=== PATIENT | female | born 1975 | race African-American/Black ===

== ENCOUNTER 2016-08-10 04:21 | Emergency (ER) | payer OTHER ==
[~2016-08-10] VITALS: Ht 172.7 cm; Wt 70.0 kg
[2016-08-10] MEDS ORDERED: ARIP1TAB7 PO (04:36)
[2016-08-10] MEDS ORDERED: [UNRECOGNIZED DRUG - REMARK] (04:36)
--- NOTE | 2016-08-10 05:01 | PD ---
HPI Chief Complaint: Psychiatric Symptoms Time Seen by Provider: 04:55 Travel History International Travel<30 days: No Contact w/Intl Traveler<30days: No Traveled to known affect area: No History of Present Illness HPI 41-year-old female presents to emergency department under Bourgeois act by PD. They had responded to a disturbance. The patient admittedly had been smoking FLAKKA. She states that she is not suicidal or homicidal. She states that she hasn't slept in days. She has been smoking FLAKKA. She states that this is not mental illness. She states that she does have a history of schizophrenia but this is more due to drugs. The patient is uncooperative. She does not want to answer questions. She states that she merely wants to be left alone allowed to sleep. She denies any toxic ingestions. PFSH Past Medical History Bipolar Disorder: Yes Anxiety: Yes Depression: Yes Diminished Hearing: No Psychiatric: Yes (Paranoid Schizophrenia, poly-substance abuse) Reproductive: Yes (GONNORRHEA) Immunizations Current: Yes Schizophrenia: Yes (PARANOID SCHIZOPHRENIA) ?: Not LMP: UNK : 3 Para: 3 Tubal Ligation: Yes Past Surgical History Abdominal Surgery: Yes (2 C SECTIONS) Section: Yes (X2) Social History Alcohol Use: Yes (beer here and there) Tobacco Use: Yes (2 ppd) Substance Use: Yes (flocka) Allergies-Medications (Allergen,Severity, Reaction): Coded Allergies: Celexa (Verified Allergy, Severe, SOB, 08/10/16) Reported Meds & Prescriptions Reported Meds & Active Scripts Active Reported [Unk Sleep Med] Abilify (Aripiprazole) 20 Mg Tab 20 Mg PO DAILY Review of Systems ROS Limitations: Psychotic Physical Exam Narrative GENERAL: Well-nourished, well-developed patient. SKIN: Warm and dry. HEAD: Normocephalic and atraumatic. EYES: No scleral icterus. No injection or drainage. ENT: No nasal drainage noted. Mucous membranes pink. Airway patent. NECK: Supple, trachea midline. Moves head freely without obvious discomfort. CARDIOVASCULAR: Regular rate and rhythm without murmurs, gallops, or rubs. RESPIRATORY: Breath sounds equal bilaterally. No accessory muscle use. GASTROINTESTINAL: Abdomen soft, non-tender, nondistended. EXTREMITIES: No cyanosis or edema. BACK: Nontender without obvious deformity. No CVA tenderness. NEURO: Patient is alert and oriented. no sensorimotor deficits. Nonfocal. Normal speech. Data Data Last Documented VS Vital Signs Date Time Temp Pulse Resp B/P Pulse Ox O2 Delivery O2 Flow Rate FiO2 08/11/16 02:00 99 18 108/67 97 Room Air Orders Complete Blood Count With Diff (08/10/16 04:55) Comprehensive Metabolic Panel (08/10/16 04:55) Drug Screen, Random Urine (08/10/16 04:55) Ed Urine Pregnancytest Poc (08/10/16 04:55) Alcohol (Ethanol) (08/10/16 04:55) Psych Screen (08/10/16 04:55) Diet Regular Basic (08/10/16 Breakfast) Diet Regular Basic (08/10/16 Lunch) Haloperidol Inj (Haldol Inj) (08/10/16 11:00) Diphenhydramine Inj (Benadryl Inj) (08/10/16 10:15) Lorazepam Inj (Ativan Inj) (08/10/16 10:10) Lorazepam Inj (Ativan Inj) (08/10/16 11:00) Diet Regular Basic (08/10/16 Dinner) Diet Regular Basic (08/11/16 Breakfast) Labs Laboratory Tests Test 08/10/16 20:40 White Blood Count 6.2 TH/MM3 Red Blood Count 5.20 MIL/MM3 Hemoglobin 15.4 GM/DL Hematocrit 44.3 % Mean Corpuscular Volume 85.3 FL Mean Corpuscular Hemoglobin 29.6 PG Mean Corpuscular Hemoglobin 34.8 % Concent Red Cell Distribution Width 12.6 % Platelet Count 221 TH/MM3 Mean Platelet Volume 8.1 FL Neutrophils (%) (Auto) 58.6 % Lymphocytes (%) (Auto) 30.9 % Monocytes (%) (Auto) 9.3 % Eosinophils (%) (Auto) 0.2 % Basophils (%) (Auto) 1.0 % Neutrophils # (Auto) 3.6 TH/MM3 Lymphocytes # (Auto) 1.9 TH/MM3 Monocytes # (Auto) 0.6 TH/MM3 Eosinophils # (Auto) 0.0 TH/MM3 Basophils # (Auto) 0.1 TH/MM3 CBC Comment DIFF FINAL Differential Comment Sodium Level 140 MEQ/L Potassium Level 4.1 MEQ/L Chloride Level 103 MEQ/L Carbon Dioxide Level 30.1 MEQ/L Anion Gap 7 MEQ/L Blood Urea Nitrogen 17 MG/DL Creatinine 1.29 MG/DL Estimat Glomerular Filtration 55 ML/MIN Rate Random Glucose 128 MG/DL Calcium Level 9.1 MG/DL Total Bilirubin 0.7 MG/DL Aspartate Amino Transf 13 U/L (AST/SGOT) Alanine Aminotransferase 18 U/L (ALT/SGPT) Alkaline Phosphatase 87 U/L Total Protein 8.1 GM/DL Albumin 4.3 GM/DL Ethyl Alcohol Level LESS THAN 3 MG/DL MDM Medical Decision Making Medical Screen Exam Complete: Yes Emergency Medical Condition: Yes Medical Record Reviewed: Yes Differential Diagnosis MDM: High Differential diagnoses: Schizophrenia, schizoaffective disorder, bipolar, anxiety, depression, adjustment reaction, mood disorder NOS, ODD, depressive disorder NOS, dementia, dementia with agitation, psychosis NOS, substance induced mood disorder, intermittent explosive disorder, Asperger syndrome, infection,electrolyte abnormality, malingering. Narrative Course Mental health screening discussed with the patient. Psychiatric screen ordered. This is substance induced psychosis Diagnosis Primary Impression: Substance-induced psychotic disorder with delusions Condition: Ty Hernandez Aug 10, 2016 05:01
[2016-08-10 06:29] VITALS: RESP 18
[2016-08-10] MEDS ORDERED: LORazepam 2 MG/ML VIAL ONE (10:10)
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
[2016-08-10] MEDS ORDERED: diphenhydrAMINE HCL 50 MG/ML VIAL IM PRN (10:15)
[2016-08-10] MEDS ORDERED: LORazepam 2 MG/ML VIAL IM ONE (11:00)
[2016-08-10] MEDS ORDERED: HALOPERIDOL LACTATE 5 MG/ML AMP IM ONE (11:00)
[2016-08-10 17:36] VITALS: BP 128/74; PULSE 89; RESP 17; O2SAT 97
[2016-08-10 18:27] VITALS: BP 128/74; PULSE 89; RESP 17; O2SAT 97
[2016-08-10 20:56] LABS: AUTOMATED NEUTROPHIL # 3.6 TH/MM3 (1.8-7.7); BASOPHIL # 0.1 TH/MM3 (0-0.2); EOSINOPHIL % 0.2 % (0.0-4.0); HEMATOCRIT 44.3 % (35.0-46.0); HEMO FLAGS DIFF FINAL; LYMPH % 30.9 % (9.0-44.0); LYMPHOCYTE # 1.9 TH/MM3 (1.0-4.8); MEAN CELL VOLUME 85.3 FL (80.0-100.0); MEAN CORPUSCULAR HEMOGLOBIN 29.6 PG (27.0-34.0); MEAN CORPUSCULAR HGB CONC 34.8 % (32.0-36.0); MONO % 9.3 % (0.0-8.0); NEUT % 58.6 % (16.0-70.0); PLATELET COUNT 221 TH/MM3 (150-450); RED CELL DISTRIBUTION WIDTH 12.6 % (11.6-17.2); WHITE BLOOD COUNT 6.2 TH/MM3 (4.0-11.0)
[2016-08-10 21:16] LABS: ALKALINE PHOSPHATASE 87 U/L (45-117); ALT (GPT) 18 U/L (10-53); ANION GAP 7 MEQ/L (5-15); AST (GOT) 13 U/L (15-37); BICARBONATE 30.1 MEQ/L (21.0-32.0); BLOOD UREA NITROGEN 17 MG/DL (7-18); CHLORIDE 103 MEQ/L (98-107); GLOMERULAR FILTRATION RATE 55 ML/MIN (>89); POTASSIUM 4.1 MEQ/L (3.5-5.1); SODIUM (NA) 140 MEQ/L (136-145); TOTAL BILIRUBIN ADULT 0.7 MG/DL (0.2-1.0)
[2016-08-10 22:20] VITALS: RESP 18
[2016-08-11 02:00] VITALS: BP 108/67; PULSE 99; RESP 18; O2SAT 97
[2016-08-11 06:49] VITALS: BP 115/70; PULSE 90; RESP 18; O2SAT 99
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
== END 2016-08-11 10:49 | disposition home or self-care (01) ==
LOC: NEPB 04:21 → NEPJ 08-11 10:49
DX: F15.959 Other stimulant use, unspecified with stimulant-induced psychotic disorder, unspecified (principal); F22 Delusional disorders; F17.210 Nicotine dependence, cigarettes, uncomplicated
CPT/HCPCS: 80053; 80320; 85025; 96372; 96374; 99283; J1200; J1630; J2060

== ENCOUNTER 2016-08-23 21:44 | Emergency (ER) | payer OTHER, MEDICAID ==
[~2016-08-23] VITALS: Ht 154.9 cm; Wt 59.1 kg
[~2016-08-23 21:44] MED LIST: ARIP1TAB7 PO; [UNRECOGNIZED DRUG - REMARK]
[2016-08-23 21:53] VITALS: BP 117/82; PULSE 83; RESP 16; TEMP 97.5; O2SAT 100
--- NOTE | 2016-08-23 22:36 | PD ---
HPI Chief Complaint: Psychiatric Symptoms Time Seen by Provider: 22:26 Travel History International Travel<30 days: No Contact w/Intl Traveler<30days: No Traveled to known affect area: No History of Present Illness HPI I saw this patient with jasmyne Calabresee. Patient reports that she is feeling suicidal. She has no plan. Took her a while to remember why she had come here. She doesn't seem particularly sincere. Reports her last flokka use was 3 days ago. Denies alcohol or drug use today. Other than some mild left ankle discomfort from walking a lot today, she has no physical complaints. Severity of symptoms is mild. No alleviating factors. Duration one day PFSH Past Medical History Bipolar Disorder: Yes Anxiety: Yes Depression: Yes Diminished Hearing: No Psychiatric: Yes (Paranoid Schizophrenia, poly-substance abuse) Reproductive: Yes (GONNORRHEA) Immunizations Current: Yes Schizophrenia: Yes (PARANOID SCHIZOPHRENIA) Influenza Vaccination: No ?: Not LMP: 08/02/2016 : 3 Para: 3 Tubal Ligation: Yes Past Surgical History Abdominal Surgery: Yes (2 C SECTIONS) Section: Yes (X2) Social History Alcohol Use: Yes (beer here and there) Tobacco Use: Yes (2 ppd) Substance Use: Yes (flocka) Allergies-Medications (Allergen,Severity, Reaction): Coded Allergies: Celexa (Verified Allergy, Severe, SOB, 08/23/16) Reported Meds & Prescriptions Reported Meds & Active Scripts Active Reported [Unk Sleep Med] Abilify (Aripiprazole) 20 Mg Tab 20 Mg PO DAILY Review of Systems General / Constitutional: No: Fever Eyes: No: Visual changes HENT: No: Headaches Cardiovascular: No: Chest Pain or Discomfort Respiratory: No: Shortness of Breath Gastrointestinal: No: Abdominal Pain Genitourinary: No: Dysuria Musculoskeletal: Positive: Pain Skin: No Rash Neurologic: No: Weakness Psychiatric: Positive: Suicidal Ideations, Substance Abuse, No: Depression Endocrine: No: Polydipsia Hematologic/Lymphatic: No: Easy Bruising Physical Exam Narrative GENERAL: Disheveled, well-developed patient in no apparent distress. SKIN: Warm and dry. HEAD: Atraumatic. Normocephalic. EYES: Pupils equal and round. No scleral icterus. No injection or drainage. ENT: No nasal bleeding or discharge. Mucous membranes pink and moist. NECK: Trachea midline. No JVD. CARDIOVASCULAR: Regular rate and rhythm. No murmur appreciated. RESPIRATORY: No accessory muscle use. Clear to auscultation. Breath sounds equal bilaterally. GASTROINTESTINAL: Abdomen soft, non-tender, nondistended. Hepatic and splenic margins not palpable. MUSCULOSKELETAL: No obvious deformities. No clubbing. No cyanosis. No edema. NEUROLOGICAL: Awake and alert. No obvious cranial nerve deficits. Motor grossly within normal limits. Normal speech. PSYCHIATRIC: Appropriate mood and affect; insight and judgment poor. Data Data Last Documented VS Vital Signs Date Time Temp Pulse Resp B/P Pulse Ox O2 Delivery O2 Flow Rate FiO2 08/23/16 21:53 97.5 83 16 117/82 100 Orders Complete Blood Count With Diff (08/23/16 22:32) Basic Metabolic Panel (Bmp) (08/23/16 22:32) Drug Screen, Random Urine (08/23/16 22:32) Ed Urine Pregnancytest Poc (08/23/16 22:32) Alcohol (Ethanol) (08/23/16 22:32) Psych Screen (08/23/16 22:32) Labs Laboratory Tests Test 08/23/16 22:43 White Blood Count 12.6 TH/MM3 Red Blood Count 4.61 MIL/MM3 Hemoglobin 13.3 GM/DL Hematocrit 39.7 % Mean Corpuscular Volume 86.1 FL Mean Corpuscular Hemoglobin 28.9 PG Mean Corpuscular Hemoglobin 33.6 % Concent Red Cell Distribution Width 15.0 % Platelet Count 327 TH/MM3 Mean Platelet Volume 9.6 FL Neutrophils (%) (Auto) 59.3 % Lymphocytes (%) (Auto) 28.9 % Monocytes (%) (Auto) 9.2 % Eosinophils (%) (Auto) 1.9 % Basophils (%) (Auto) 0.7 % Neutrophils # (Auto) 7.4 TH/MM3 Lymphocytes # (Auto) 3.6 TH/MM3 Monocytes # (Auto) 1.2 TH/MM3 Eosinophils # (Auto) 0.2 TH/MM3 Basophils # (Auto) 0.1 TH/MM3 CBC Comment DIFF FINAL Differential Comment Sodium Level 138 MEQ/L Potassium Level 3.3 MEQ/L Chloride Level 103 MEQ/L Carbon Dioxide Level 25.4 MEQ/L Anion Gap 10 MEQ/L Blood Urea Nitrogen 8 MG/DL Creatinine 0.72 MG/DL Estimat Glomerular Filtration 107 ML/MIN Rate Random Glucose 98 MG/DL Calcium Level 8.7 MG/DL Ethyl Alcohol Level LESS THAN 3 MG/DL MDM Medical Decision Making Medical Screen Exam Complete: Yes Emergency Medical Condition: Yes Medical Record Reviewed: Yes Differential Diagnosis Psychosis, suicidal ideation, polysubstance abuse Narrative Course I have reviewed the patient's electronic medical record. She is a frequent visitor for drug related and psychiatric related problems. CBC shows minimal leukocytosis, nonspecific Metabolic profile is normal Alcohol is negative Toxicology screen is pending I've ordered psychiatric screening as she presents with suicidal ideation and desires that. Patient is is medically stable as can be made. Disposition will be per psychiatry. Diagnosis Primary Impression: Suicidal ideation Additional Impression: Polysubstance abuse Naif Brenner MD Aug 23, 2016 22:36
[2016-08-23 22:57] LABS: AUTOMATED NEUTROPHIL # 7.4 TH/MM3 (1.8-7.7); BASOPHIL # 0.1 TH/MM3 (0-0.2); BASOPHIL % 0.7 % (0.0-2.0); EOSINOPHIL # 0.2 TH/MM3 (0-0.4); EOSINOPHIL % 1.9 % (0.0-4.0); HEMATOCRIT 39.7 % (35.0-46.0); HEMO FLAGS DIFF FINAL; LYMPH % 28.9 % (9.0-44.0); LYMPHOCYTE # 3.6 TH/MM3 (1.0-4.8); MEAN CELL VOLUME 86.1 FL (80.0-100.0); MEAN CORPUSCULAR HEMOGLOBIN 28.9 PG (27.0-34.0); MEAN CORPUSCULAR HGB CONC 33.6 % (32.0-36.0); MONO % 9.2 % (0.0-8.0); NEUT % 59.3 % (16.0-70.0); PLATELET COUNT 327 TH/MM3 (150-450); RED BLOOD COUNT 4.61 MIL/MM3 (4.00-5.30); WHITE BLOOD COUNT 12.6 TH/MM3 (4.0-11.0)
[2016-08-23 23:14] LABS: ANION GAP 10 MEQ/L (5-15); BICARBONATE 25.4 MEQ/L (21.0-32.0); BLOOD UREA NITROGEN 8 MG/DL (7-18); CHLORIDE 103 MEQ/L (98-107); GLOMERULAR FILTRATION RATE 107 ML/MIN (>89); POTASSIUM 3.3 MEQ/L (3.5-5.1); SODIUM (NA) 138 MEQ/L (136-145)
--- NOTE | 2016-08-24 01:05 | PD ---
Physical Exam Time Seen by Provider: 01:01 Narrative PLEASE REFER TO PREVIOUS PROVIDERS DOCUMENTATION FOR DETAILS SURROUNDING THE PATIENT'S CURRENT VISIT. Data Data Last Documented VS Vital Signs Date Time Temp Pulse Resp B/P Pulse Ox O2 Delivery O2 Flow Rate FiO2 08/23/16 21:53 97.5 83 16 117/82 100 Orders Complete Blood Count With Diff (08/23/16 22:32) Basic Metabolic Panel (Bmp) (08/23/16 22:32) Drug Screen, Random Urine (08/23/16 22:32) Ed Urine Pregnancytest Poc (08/23/16 22:32) Alcohol (Ethanol) (08/23/16 22:32) Psych Screen (08/23/16 22:32) Labs Laboratory Tests Test 08/23/16 22:43 White Blood Count 12.6 TH/MM3 Red Blood Count 4.61 MIL/MM3 Hemoglobin 13.3 GM/DL Hematocrit 39.7 % Mean Corpuscular Volume 86.1 FL Mean Corpuscular Hemoglobin 28.9 PG Mean Corpuscular Hemoglobin 33.6 % Concent Red Cell Distribution Width 15.0 % Platelet Count 327 TH/MM3 Mean Platelet Volume 9.6 FL Neutrophils (%) (Auto) 59.3 % Lymphocytes (%) (Auto) 28.9 % Monocytes (%) (Auto) 9.2 % Eosinophils (%) (Auto) 1.9 % Basophils (%) (Auto) 0.7 % Neutrophils # (Auto) 7.4 TH/MM3 Lymphocytes # (Auto) 3.6 TH/MM3 Monocytes # (Auto) 1.2 TH/MM3 Eosinophils # (Auto) 0.2 TH/MM3 Basophils # (Auto) 0.1 TH/MM3 CBC Comment DIFF FINAL Differential Comment Sodium Level 138 MEQ/L Potassium Level 3.3 MEQ/L Chloride Level 103 MEQ/L Carbon Dioxide Level 25.4 MEQ/L Anion Gap 10 MEQ/L Blood Urea Nitrogen 8 MG/DL Creatinine 0.72 MG/DL Estimat Glomerular Filtration 107 ML/MIN Rate Random Glucose 98 MG/DL Calcium Level 8.7 MG/DL Ethyl Alcohol Level LESS THAN 3 MG/DL [facility] Medical Record Reviewed: Yes Supervised Visit with PRABHA: No Narrative Course I spoke with the labia, psychiatric nurse. Gastric screen was complete. Patient does not meet inpatient criteria. Patient will be discharged with outpatient resources. Instructed to return immediately if any acute worsening of symptoms. Diagnosis Primary Impression: Polysubstance abuse Additional Impression: Suicidal thoughts Referrals: [facility] (Out patient) Patient Instructions: General Instructions, Polysubstance Abuse (ED) Additional Instruction: Utilize your outpatient package for resources Return immediately to the emergency department with any acute worsening symptoms Med/Other Pt SpecificInfo: No Change to Meds Disposition: 01 DISCHARGE HOME Condition: Stable Shirin Candelaria Aug 24, 2016 01:04
== END 2016-08-24 02:30 | disposition home or self-care (01) ==
LOC: NEPA 21:44
DX: F19.10 Other psychoactive substance abuse, uncomplicated (principal); R45.851 Suicidal ideations; M25.572 Pain in left ankle and joints of left foot; D72.829 Elevated white blood cell count, unspecified; F17.200 Nicotine dependence, unspecified, uncomplicated; Z86.59 Personal history of other mental and behavioral disorders; Z87.42 Personal history of other diseases of the female genital tract
CPT/HCPCS: 80048; 80320; 85025; 99284

== ENCOUNTER 2016-08-28 05:53 | Emergency (ER) | payer OTHER ==
[~2016-08-28] VITALS: Ht 154.3 cm; Wt 68.0 kg
[2016-08-28 05:55] VITALS: BP 114/82; PULSE 94; RESP 16; TEMP 98; O2SAT 100
--- NOTE | 2016-08-28 06:52 | PD ---
HPI Chief Complaint: Psychiatric Symptoms Time Seen by Provider: 06:42 Travel History International Travel<30 days: No Contact w/Intl Traveler<30days: No Traveled to known affect area: No History of Present Illness HPI 41-year-old black female presents to emergency department on a voluntary basis for psychological evaluation. She states that she has a history of paranoid schizophrenia, and substance abuse. She states that she's been off FLAKKA now for 7 days. She is currently homeless. Her father lives in [place] does not have anything to do with her. Her mother is . She has several children but they have issues with her own and lives with other people. The patient also states that she was bitten in the right posterior thigh by a dog earlier tonight. She was wearing long pants which did not break her skin. She states that she is feeling acutely suicidal and homicidal although she does not have a plan. She claims that she is hearing voices. She denies any visual hallucinations. She states that she needs to get into a treatment program. She denies any toxic ingestions. No recent illness. She did smoke marijuana earlier today. [facility] Past Medical History Narrative Medical Bipolar, paranoid schizophrenia, substance abuse Bipolar Disorder: Yes Anxiety: Yes Depression: Yes Diminished Hearing: No Psychiatric: Yes (Paranoid Schizophrenia, poly-substance abuse) Reproductive: Yes (GONNORRHEA) Immunizations Current: Yes Schizophrenia: Yes (PARANOID SCHIZOPHRENIA) Tetanus Vaccination: Unknown ?: Not LMP: 08/18/16 : 3 Para: 3 Tubal Ligation: Yes Past Surgical History Abdominal Surgery: Yes (2 C SECTIONS) Section: Yes (X2) Social History Alcohol Use: Yes (beer here and there) Tobacco Use: Yes (2 ppd) Substance Use: Yes (FLAKKA, MARIJUANA, HEROIN) Allergies-Medications (Allergen,Severity, Reaction): Coded Allergies: Celexa (Verified Allergy, Severe, SOB, 08/28/16) Reported Meds & Prescriptions Reported Meds & Active Scripts Active Reported [Unk Sleep Med] Abilify (Aripiprazole) 20 Mg Tab 20 Mg PO DAILY Review of Systems Except as stated in HPI: all other systems reviewed are Neg Psychiatric: Positive: Depression, Suicidal Ideations, Disorder of Thought, Mood Disorder, Substance Abuse, Homicidal Ideation Physical Exam Narrative GENERAL: Well-nourished, well-developed patient. SKIN: Warm and dry. HEAD: Normocephalic and atraumatic. EYES: No scleral icterus. No injection or drainage. ENT: No nasal drainage noted. Mucous membranes pink. Airway patent. NECK: Supple, trachea midline. Moves head freely without obvious discomfort. CARDIOVASCULAR: Regular rate and rhythm without murmurs, gallops, or rubs. RESPIRATORY: Breath sounds equal bilaterally. No accessory muscle use. GASTROINTESTINAL: Abdomen soft, non-tender, nondistended. EXTREMITIES: No cyanosis or edema. The patient has ecchymosis to the posterior thigh. No break in skin. BACK: Nontender without obvious deformity. No CVA tenderness. NEURO: Patient is alert and oriented. no sensorimotor deficits. Nonfocal. Normal speech. PSYCH: Patient has auditory hallucinations but no visual hallucinations. Data Data Last Documented VS Vital Signs Date Time Temp Pulse Resp B/P Pulse Ox O2 Delivery O2 Flow Rate FiO2 08/28/16 05:55 98.0 94 16 114/82 100 Orders Psych Screen (08/28/16 06:37) MDM Medical Decision Making Medical Screen Exam Complete: Yes Emergency Medical Condition: Yes Medical Record Reviewed: Yes Differential Diagnosis MDM: High Differential diagnoses: Schizophrenia, schizoaffective disorder, bipolar, anxiety, depression, adjustment reaction, mood disorder NOS, ODD, depressive disorder NOS, dementia, dementia with agitation, psychosis NOS, substance induced mood disorder, intermittent explosive disorder, Asperger syndrome, infection,electrolyte abnormality, malingering. Narrative Course Mental health screening discussed with the patient. Psychiatric screen ordered. I reviewed the patient's last several ER visits I do not believe any additional laboratory testing is indicated to perform a medical clearance on this patient. She admits to a history of FLAKKA and marijuana abuse. She claims that she is been sober now for one week except for marijuana. She claims that she is feeling acutely suicidal, homicidal and hearing voices. I'm not convinced that this is a malingering activity on the patient to obtain a domicile. The patient will be evaluated by the psych screener. This is bipolar with psychotic features, substance abuse, dog bite Diagnosis Primary Impression: Bipolar disorder with psychotic features Additional Impressions: Substance abuse Dog bite Qualified Code: W54.0XXA - Dog bite, initial encounter Condition: Stable Ty Jack Aug 28, 2016 06:52
[2016-08-28 11:38] VITALS: BP 110/77; PULSE 96; RESP 18; O2SAT 98
[2016-08-28 12:00] VITALS: BP 114/71; PULSE 88; RESP 18; TEMP 97.4; O2SAT 99
[2016-08-28] MEDS ORDERED: HYDR50TA94 PO (13:34)
[2016-08-28] MEDS ORDERED: RISP1TAB2 PO (13:35)
[2016-08-28 14:27] VITALS: BP 112/75; PULSE 104; RESP 15
== END 2016-08-28 16:30 | disposition left against medical advice (07) ==
LOC: NEPB 05:53 → NEPJ 16:30
DX: F31.9 Bipolar disorder, unspecified (principal); S71.151A Open bite, right thigh, initial encounter; F31.89 Other bipolar disorder; F29 Unspecified psychosis not due to a substance or known physiological condition; F11.10 Opioid abuse, uncomplicated; F12.10 Cannabis abuse, uncomplicated; F15.10 Other stimulant abuse, uncomplicated; F17.210 Nicotine dependence, cigarettes, uncomplicated; W54.0XXA Bitten by dog, initial encounter; F20.0 Paranoid schizophrenia; Z59.0 Homelessness
CPT/HCPCS: 99284